=== PATIENT | female | born 1980 | race Caucasian/White ===

== ENCOUNTER 2019-12-23 14:22 | Emergency (ER) | payer OTHER, SELFPAY ==
[2019-12-23 14:23] VITALS: BP 109/81; PULSE 108; RESP 18; TEMP 37.2; O2SAT 97; BMI 30.2
--- NOTE | 2019-12-23 15:14 | ED.DCSUM_ITS ---
History of Present Illness Chief Complaint: Abd Pain Informant: Patient - Abdominal Pain/Flank Pain Context: Gradual Onset Timing: Intermittent Quality: Cramping Location: RLQ Current Severity: Moderate Maximum Severity: Moderate Worsened by: Food, Movement Relieved by: Remaining Still - Nausea/Vomiting/Emesis GI Symptom: Negative for: Nausea, Vomiting - Diarrhea/Melena/Hematochezia GI Symptom: Negative for: Diarrhea, Melena, Hematochezia Associated Symptoms: Negative for: Dysuria, Frequency, Hematuria, Urgency Narrative: 39-year-old female with a history of Crohn's disease presents to the emergency department with abdominal pain. She is been having this pain for about 4 days. It is intermittent and cramping. It is worse in her right lower quadrant. She has had nausea but no vomiting. She has been slightly constipated. She denies any melena or hematochezia. She denies any urinary symptoms. She is not had fevers. She has been eating and drinking normally. 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 Prior similar symptoms: Yes Recent Illness/Hospitalization: No Past Medical History - Allergies and Home Meds Allergies/Adverse Reactions: Allergies cefixime [From Suprax] Allergy (Verified 12/23/19 14:27) Hives dicyclomine [From Bentyl] Allergy (Verified 12/23/19 14:27) Hives morphine Allergy (Verified 12/23/19 14:27) Hives acetaminophen [From Percocet] Adverse Reaction (Verified 12/23/19 14:27) Other DIZZINESS ondansetron [From Zofran] Adverse Reaction (Verified 12/23/19 14:27) Vomiting oxycodone [From Percocet] Adverse Reaction (Verified 12/23/19 14:27) Other DIZZINESS zolpidem [From Ambien] Adverse Reaction (Verified 12/23/19 14:27) Other Primary Care Physician: Donis Encinas MD [Primary Care Provider] - Gilbert Eason MD [NON-STAFF] - Prior records reviewed: Yes Past Medical History: - - Crohn's disease Surgical History: cholecystectomy, - - Ileectomy Lives: With Family Smoking Status: Never smoker Alcohol: Occasional Drugs: None Review of Systems All systems negative except as indicated General: Denies: Chills, Fever Eyes: Denies: Visual changes - bilaterally, Blurred Vision - bilaterally, Diplopia ENT: Denies: Rhinorrhea, Sore throat Respiratory: Denies: Dyspnea, Cough, Sputum, Dyspnea on exertion, Orthopnea Gastrointestinal: Reports: Abdominal pain, Nausea. Denies: Diarrhea, Constipation, Melena, Hematochezia Genitourinary: Denies: Dysuria, Hematuria Musculoskeletal: Denies: Arthralgias, Neck pain, Back pain Skin: Denies: Rash, Abscess, Abrasions Neurological: Denies: Headache, Weakness, Parasthesia Hematologic: Denies: Easy bruising, Easy bleeding Physical Exam Vital Signs/Narrative: Vital Signs Temp Pulse Resp BP Pulse Ox 12/23/19 14:23 98.9 F 108 H 18 109/81 H 97 Inital Vital Signs reviewed: Yes General: Well nourished, Well developed, No Acute Distress Head: Normocephalic, Atraumatic Eyes: Perrl, EOMI ENT: Moist mucous membranes, No rhinorrhea Neck: Supple, Nontender, No lymphadenopathy, No JVD Cardiovascular: Regular rate, Regular rhythm, No murmurs Respiratory: No distress, CTA bilaterally, Chest nontender Abdomen: Soft, Nontender, Nondistended, Normal bowel sounds, No masses Back: Nontender, Normal Inspection Extremities: Nontender, No edema Skin: Normal color, No rash Neurological: Alert, Oriented x3 Psychological: Normal affect, Normal Mood Diagnostic/Tx/Re-eval - Medical Decision Making After evaluating the patient I reviewed clinisync. Patient was discharged from [facility] today at 1330 p.m. and I reviewed that work-up which included a CBC, CMP, lipase, ESR, CRP and a magnesium level. All labs were within normal limits. They also did a KUB which showed moderate stool burden but no other acute abnormality. Nursing staff informed and they were unable to get an IV established with the patient. I went back in and asked her if she was seen at [facility] and she was initially not truthful until I told her that I seen the testing done at [facility] and then she did admit that she was at [facility] but she was upset because they only gave her IV fluids, IV Phenergan and oral Tylenol. She is here for further pain control. I discussed with her that based off of her labs that she had done earlier today her vital signs and her clinical exam this afternoon I did not feel that narcotics are indicated. Patient was extremely angry and left the emergency department prior to the completion of my evaluation or being seen by 1 of the attending physicians. ED Disposition - Plan for ED Patient: Disposition: Home or Assisted Living Diagnosis: Abdominal pain, Crohn disease Instructions: ABDOMINAL PAIN, Unknown Cause, (Female) Referrals: Gilbert Eason MD [NON-STAFF] - Donis Encinas MD [Primary Care Provider] -
--- NOTE | 2019-12-23 15:22 | NURSING ---
PT was seen previously at [facility] earlier today, was upset that the provider here would not flat locker her pain medication. Was spoken to several times about plan of care, she stated If I am not getting my pain medicine then I want to leave. This RN came back in the room and the patient left without discharge instructions.
== END 2019-12-23 15:30 | disposition home or self-care (01) ==
PROVIDERS: Emergency Provider Physician Assistant Medical; PCP Internal Medicine
DX: K50.90 Crohn's disease, unspecified, without complications (principal); Z90.49 Acquired absence of other specified parts of digestive tract
CPT/HCPCS: 99281; 99282